=== PATIENT | female | born 1975 | race Hispanic/Latino ===

== ENCOUNTER 2021-10-15 12:05 | Outpatient (CLI) | payer MEDICARE | END 2021-10-15 12:06 | disposition home or self-care (01) | LOC: CSHULT 12:05 | PROVIDERS: ATTEND Nurse Practitioner Adult Health | DX: R10.2 Pelvic and perineal pain (principal); Z80.41 Family history of malignant neoplasm of ovary | CPT/HCPCS: 36415; 76856; 82140 ==

== ENCOUNTER 2022-01-18 09:03 | Emergency (ER) | payer MEDICARE ==
[2022-01-18 10:04] LABS: ALT (SGPT) 82 U/L (8-55); AST (SGOT) 124 U/L (5-34); Albumin 3.1 g/dL (3.5-5.0); Alkaline Phosphatase 759 U/L (40-110); Anion Gap 11 mmol/L (10-20); BUN (Urea Nitrogen) 12 mg/dL (7.0-18.7); Bilirubin, Total 2.7 mg/dL (0.2-1.2); Calc. Creatinine Clearance 0 mL/min (70-130); Calcium 8.4 mg/dL (7.8-10.44); Carbon Dioxide 23 mmol/L (22-29); Chloride 110 mmol/L (98-107); Estimated GFR 62; Globulin 2.5 g/dL (2.4-3.5); Glucose 76 mg/dL (70-105); Potassium 3.3 mmol/L (3.5-5.1); Protein, Total 5.6 g/dL (6.0-8.3); Sodium 141 mmol/L (136-145)
[2022-01-18 10:06] LABS: #Eosinphils 0.1 10x3/uL (0.0-0.5); #Monocytes 0.4 10x3/uL (0.0-1.1); #Neutrophils 2.3 10x3/uL (1.5-8.4); %Basophils 0.8 % (0.0-2.0); %Eosinophils 1.7 % (0.0-6.0); %Monocytes 8.1 % (0.0-10.0); %Neutrophils 44.2 % (40.0-75.0); Hemoglobin 10.2 g/dL (12.0-15.5); Mean Corpuscular HGB CONC 33.7 g/dL (32.0-36.0); Mean Corpuscular Hemoglobin 33.8 pg (27.0-33.0); Mean Corpuscular Volume 100.3 fl (81.6-98.3); Mean Platelet Volume 10.3 fl (7.4-10.4); Platelet Count 178 10x3/uL (150-450); RBC Distribution Width 20.4 % (11.5-14.5); Red Blood Cell (RBC) Count 3.02 10x6/uL (3.90-5.03); White Blood Cell (WBC) Count 5.3 10x3/uL (3.5-10.5)
[2022-01-18 10:07] LABS: Anisocytosis SLIGHT = 6-15 cells (100X) (0-5/hpf); Macrocytosis SLIGHT = 6-15 cells (100X) (0-5/hpf)
[2022-01-18 10:08] LABS: Ovalocytes SLIGHT = 2-5 cells (100X) (0-1/hpf)
[2022-01-18 10:09] LABS: Platelet Morphology Comment Appears Adequate
== END 2022-01-18 13:30 | disposition home or self-care (01) ==
LOC: CSHERS 09:03
DX: E86.0 Dehydration (principal); D84.9 Immunodeficiency, unspecified; R74.01 Elevation of levels of liver transaminase levels
CPT/HCPCS: 36415; 74176; 80053; 82140; 85025; 87040; 96360

== ENCOUNTER 2022-05-16 13:17 | Emergency (ER) | payer MEDICARE ==
[2022-05-16 13:55] LABS: #Monocytes 0.7 10x3/uL (0.0-1.1); #Neutrophils 14.2 10x3/uL (1.5-8.4); %Basophils 0.1 % (0.0-2.0); %Monocytes 4.5 % (0.0-10.0); Hemoglobin 10.2 g/dL (12.0-15.5); Mean Corpuscular HGB CONC 33.6 g/dL (32.0-36.0); Mean Corpuscular Hemoglobin 34.5 pg (27.0-33.0); Mean Corpuscular Volume 102.7 fl (81.6-98.3); Mean Platelet Volume 11.5 fl (7.4-10.4); Platelet Count 231 10x3/uL (150-450); RBC Distribution Width 19.9 % (11.5-14.5); Red Blood Cell (RBC) Count 2.96 10x6/uL (3.90-5.03); White Blood Cell (WBC) Count 15.8 10x3/uL (3.5-10.5)
[2022-05-16 14:02] LABS: INR-International Normal Ratio 1.2; PTT 31.5 sec (22.0-33.0); Prothrombin Time 12.5 sec (9.5-12.1)
[2022-05-16 14:08] LABS: Acetaminophen Less than 10.0 mcg/mL (10.0-30.0); Alcohol Less than 10 mg/dL (Less than 10); Salicylate Less than 8.0 mg/dL (15.0-30.0)
[2022-05-16 14:09] LABS: ALT (SGPT) 138 U/L (8-55); AST (SGOT) 245 U/L (5-34); Albumin 3.4 g/dL (3.5-5.0); Alkaline Phosphatase 338 U/L (40-110); Anion Gap 23 mmol/L (10-20); BUN (Urea Nitrogen) 74 mg/dL (7.0-18.7); Calc. Creatinine Clearance 0 mL/min (70-130); Calcium 10.1 mg/dL (7.8-10.44); Carbon Dioxide 15 mmol/L (22-29); Chloride 100 mmol/L (98-107); Estimated GFR 10; Globulin 3.1 g/dL (2.4-3.5); Glucose 119 mg/dL (70-105); Lipase 6 U/L (8-78); Potassium 4.2 mmol/L (3.5-5.1); Protein, Total 6.5 g/dL (6.0-8.3); Sodium 134 mmol/L (136-145)
[2022-05-16 14:17] LABS: Bilirubin, Total 40.1 mg/dL (0.2-1.2)
[2022-05-16 16:19] LABS: SARS-CoV-2 NAA Rapid Test DETECTED (NotDetected)
[2022-05-16 16:34] LABS: Actual Bicarbonate (HCO3v) 16 mEq/L (22-28); Base Excess -9.3 mEq/L (-2 - +2); Puncture Site Other Site; pH (venous) 7.29 (7.32-7.43)
== END 2022-05-16 22:29 | disposition short-term general hospital (02) ==
LOC: CSHERS 13:17
DX: N17.9 Acute kidney failure, unspecified (principal); E80.6 Other disorders of bilirubin metabolism; D72.829 Elevated white blood cell count, unspecified; E03.9 Hypothyroidism, unspecified; Z20.822 Contact with and (suspected) exposure to COVID-19
CPT/HCPCS: 70450; 71045; 80053; 80307; 82140; 82805; 83605; 83690; 85025; 85610; 85730; 96360; 96361; 99285; U0002